=== PATIENT | female | born 1970 | race Hispanic/Latino ===

== ENCOUNTER 2023-08-04 17:03 | Emergency (ER) | payer BC ==
[~2023-08-04] VITALS: Ht 154.9 cm; Wt 93.9 kg
[2023-08-04] MEDS ORDERED: CYCLOBENZAPRINE HCL 10 MG TABLET PO ONE (19:00)
[2023-08-04] MEDS ORDERED: KETOROLAC 60 MG VIAL (30MG/ML) IM ONE (19:00)
[2023-08-04 20:20] VITALS: BP 146/70; PULSE 68; RESP 18; O2SAT 99
[2023-08-04] MEDS ORDERED: IBUP-2077 PO (20:40)
[2023-08-04] MEDS ORDERED: CYCL-309 PO (20:40)
== END 2023-08-04 20:58 | disposition home or self-care (01) ==
LOC: EDH 17:03
DX: S13.4XXA Sprain of ligaments of cervical spine, initial encounter (principal); F41.9 Anxiety disorder, unspecified; F32.A Depression, unspecified; X58.XXXA Exposure to other specified factors, initial encounter; Y93.89 Activity, other specified; Y92.89 Other specified places as the place of occurrence of the external cause; Y99.8 Other external cause status
CPT/HCPCS: 99284; 72040; 96372; J1885

== ENCOUNTER 2024-04-03 20:49 | Emergency (ER) | payer SELFPAY ==
[~2024-04-03] VITALS: Ht 157.5 cm; Wt 93.4 kg
[~2024-04-03 20:49] MED LIST: CYCL-309 PO; IBUP-2077 PO
[2024-04-03 21:11] LABS: RAPID GROUP A STREP negative (NEGATIVE)
[2024-04-03 21:18] LABS: SARS-CoV-2, RNA, NAAT NEGATIVE SARS CoV-2 (NEGATIVE)
[2024-04-03 21:21] LABS: INFLUENZA TYPE A Negative For Type A (NEGATIVE); INFLUENZA TYPE B Negative For Type B (NEGATIVE)
[2024-04-03] MEDS ORDERED: BENZ-39 PO (21:26)
[2024-04-03] MEDS ORDERED: IBUP-2070 PO (21:26)
[2024-04-03 21:47] VITALS: BP 142/74; PULSE 84; RESP 18; TEMP 98.4; O2SAT 97
== END 2024-04-03 21:49 | disposition home or self-care (01) ==
LOC: EDH 20:49
DX: J06.9 Acute upper respiratory infection, unspecified (principal); B97.89 Other viral agents as the cause of diseases classified elsewhere; E11.9 Type 2 diabetes mellitus without complications; F32.A Depression, unspecified; F41.9 Anxiety disorder, unspecified; Z20.822 Contact with and (suspected) exposure to COVID-19; Z79.899 Other long term (current) drug therapy; Z88.8 Allergy status to other drugs, medicaments and biological substances; Z98.890 Other specified postprocedural states
CPT/HCPCS: 87635; 87804; 87880